=== PATIENT | male | born 1965 | race Caucasian/White ===

== ENCOUNTER 2020-07-14 02:46 | Emergency (ER) | payer OTHER ==
[2020-07-14 03:24] LABS: Protime INR 1.18
[2020-07-14 03:25] LABS: Absolute Lymphocytes (CBC) 4.9 K/uL (0.7-4.9); MPV 6.8 fL (7.6-11.3)
[2020-07-14 03:33] LABS: Basophils % 0.6 % (0-1.3); Hematocrit 42.9 % (39.6-49.0); Lymphocytes % 47.9 % (15.3-44.8); RBC Red Blood Cell Count 4.65 M/uL (4.33-5.43)
[2020-07-14 03:34] LABS: ALT/SGPT 27 U/L (12-78); AST/SGOT 15 U/L (15-37); Albumin 3.6 g/dL (3.4-5.0); Alkaline Phosphatase 57 U/L (45-117); BUN Blood Urea Nitrogen 16 mg/dL (7-18); Bicarbonate 27 mmol/L (21-32); Bilirubin Direct 0.1 mg/dL (0-0.2); Bilirubin Total 0.5 mg/dL (0.2-1.0); Glucose Level 110 mg/dL (74-106); Magnesium 2.2 mg/dL (1.8-2.4); NT PRO-BNP 25 pg/mL (<125); Protein, Total 7.4 g/dL (6.4-8.2); Sodium Level 139 mmol/L (136-145); Troponin (Emerg Dept Use Only) < 0.02 ng/mL (0.0-0.045)
[2020-07-14] MEDS ORDERED: ASPIRIN 81 MG CHEWABLE TABLET ONE (03:46)
[2020-07-14] MEDS ORDERED: MORPHINE 4 MG/ML SYR ONE ×2 (03:47→04:33)
[2020-07-14] MEDS ORDERED: NA CHLORIDE 0.9% 1,000 ML ONE (03:47)
[2020-07-14] MEDS ORDERED: ONDANSETRON 4 MG/2 ML VIAL ONE (03:47)
--- NOTE | 2020-07-14 04:14 | EDPHYS ---
Physician Documentation [facility] Name: Leonard Willis Age: 55 yrs Sex: Male : 1965 Arrival Date: 07/14/2020 Time: 02:50 Bed 14 Private MD: ED Physician Danica Fong HPI: 07/14 03:19 This 55 yrs old Male presents to ER via Ambulatory with complaints of Arm ma2 Pain, -raditates to finger causing numbness. 03:19 The patient or guardian complains of pain, that is acute. Onset: The symptoms/episode ma2 began/occurred suddenly, 1 hour(s) ago. Associated signs and symptoms: Pertinent negatives: fever, nausea, pain, tingling. Severity of symptoms: At their worst the symptoms were mild, in the emergency department the symptoms are unchanged. The patient has not experienced similar symptoms in the past. scapula pain that radiate to left arm . Historical: - Allergies: 03:11 No Known Allergies; - Home Meds: 03:11 None [Active]; - PMHx: 03:11 Barrets Esophagus; Skin Cancer; - Immunization history:: Adult Immunizations up to date, Client reports receiving the 2nd dose of the Covid vaccine. - Social history:: Smoking status: Patient reports the use of cigarette tobacco products, smokes one pack cigarettes per day. Patient/guardian denies using alcohol, street drugs, The patient lives with family. - Family history:: not pertinent. ROS: 03:19 Constitutional: Negative for fever, chills, and weight loss. ma2 03:19 All other systems are negative. Exam: 03:19 Constitutional: This is a well developed, well nourished patient who is awake, alert, ma2 and in no acute distress. Neck: Trachea midline, no thyromegaly or masses palpated, and no cervical lymphadenopathy. Supple, full range of motion without nuchal rigidity, or vertebral point tenderness. No Meningismus. Chest/axilla: Normal chest wall appearance and motion. Nontender with no deformity. No lesions are appreciated. Cardiovascular: Regular rate and rhythm with a normal S1 and S2. No gallops, murmurs, or rubs. Normal PMI, no JVD. No pulse deficits. Respiratory: Lungs have equal breath sounds bilaterally, clear to auscultation and percussion. No rales, rhonchi or wheezes noted. No increased work of breathing, no retractions or nasal flaring. Abdomen/GI: Soft, non-tender, with normal bowel sounds. No distension or tympany. No guarding or rebound. No evidence of tenderness throughout. Skin: Warm, dry with normal turgor. Normal color with no rashes, no lesions, and no evidence of cellulitis. MS/ Extremity: Pulses equal, no cyanosis. Neurovascular intact. Full, normal range of motion. Neuro: Awake and alert, GCS 15, oriented to person, place, time, and situation. Cranial nerves II-XII grossly intact. Motor strength 5/5 in all extremities. Sensory grossly intact. Cerebellar exam normal. Normal gait. Vital Signs: 03:08 BP 128 / 92; Pulse 86; Resp 18; Temp 98.3; Pulse Ox 97% on R/A; Weight 88.45 kg; Height wh 6 ft. 0 in. (182.88 cm); Pain 7/10; 04:00 BP 112 / 94; Pulse 75; Resp 18; Pulse Ox 96% on R/A; wh 05:09 BP 114 / 82; Pulse 62; Resp 18; Pulse Ox 96% on R/A; wh 03:08 Body Mass Index 26.45 (88.45 kg, 182.88 cm) MDM: 03:18 Patient medically screened. ma2 03:19 Differential diagnosis: contusion, abrasion, tendonitis, chest pain, left sided, shimon ma2 score is 2, daily smoker. ekg with twi. Data reviewed: vital signs, nurses notes. 04:12 Counseling: I had a detailed discussion with the patient and/or guardian regarding: the ma2 historical points, exam findings, and any diagnostic results supporting the discharge/admit diagnosis, the presence of at least one elevated blood pressure reading (>120/80) during this emergency department visit, the need for further work-up and treatment in the hospital. Response to treatment: the patient's symptoms have markedly improved after treatment. 04:44 ED course: patient decied he want to leave AMA, I explained that this could be ME and ma2 risk of having worsening outcome and or . patient understands risk of leaving AMA he will see his pcp in the next few days . 07/14 03:02 Order name: Basic Metabolic Panel; Complete Time: 03:53 07/14 03:02 Order name: CBC with Diff; Complete Time: 03:53 07/14 03:02 Order name: LFT's; Complete Time: 03:53 07/14 03:02 Order name: Magnesium; Complete Time: 03:53 07/14 03:02 Order name: NT PRO-BNP; Complete Time: 03:53 07/14 03:02 Order name: PT-INR; Complete Time: 03: 07/14 03:02 Order name: Troponin (emerg Dept Use Only); Complete Time: 03:53 07/14 03:02 Order name: XRAY Chest (1 view) 07/14 03:02 Order name: EKG; Complete Time: 03:02 07/14 03:02 Order name: Cardiac monitoring; Complete Time: 03:13 07/14 03:02 Order name: EKG - Nurse/Tech; Complete Time: 03:13 07/14 03:02 Order name: IV Saline Lock; Complete Time: 03: 07/14 03:02 Order name: Labs collected and sent; Complete Time: 03:14 07/14 03:02 Order name: O2 Per Protocol; Complete Time: 03: 07/14 03:02 Order name: O2 Sat Monitoring; Complete Time: 03:14 Administered Medications: 03:25 Drug: Aspirin Chewable Tablet 324 mg Route: PO; 04:04 Follow up: Response: No adverse reaction 03:27 Drug: NS 0.9% 1000 ml Route: IV; Rate: 1 bolus; Site: right antecubital; 04:47 Follow up: Response: No adverse reaction; IV Status: Completed infusion 03:29 Drug: morphine 4 mg {Note: RASS 0.} Route: IVP; Site: right antecubital; 04:05 Follow up: Response: No adverse reaction; Pain is unchanged, physician notified; RASS: Alert and Calm (0) 03:31 Drug: Zofran (Ondansetron) 4 mg Route: IVP; Site: right antecubital; 04:04 Follow up: Response: No adverse reaction 04:04 Drug: Nitroglycerin 0.4 mg Route: Sublingual; 04:47 Follow up: Response: No adverse reaction 04:19 Drug: morphine 4 mg {Note: RASS 0.} Route: IVP; Site: right antecubital; 04:47 Follow up: Response: No adverse reaction; Pain is decreased; RASS: Alert and Calm (0) 04:58 Drug: Lidoderm 5 % (700 mg/patch) 1 patches Route: Topical; Site: affected area; 05:09 Follow up: Response: No adverse reaction 04:58 Drug: TORadol (ketorolac) 30 mg Route: IVP; Site: right antecubital; 05:08 Follow up: Response: No adverse reaction Disposition: 07/14/20 04:47 Patient has left against medical advice. Impression: Pain in left arm, Chest pain, unspecified. - Patients states they are going to Home. - Condition is Stable. - Discharge Instructions: Nonspecific Chest Pain. - Prescriptions for Diclofenac Sodium 75 mg Oral Tablet Sustained Release - take 1 tablet by ORAL route 2 times per day; 30 tablet. lidocaine 5 % Topical adhesive patch,medicated - apply 2 patch by TRANSDERMAL route once daily; 5 Each. Follow up: Private Physician; When: Today; Reason: Continuance of care. - Problem is new. - Symptoms are unchanged. Signatures: Dispatcher [employer] EDMS Kannan Coats, VULNERABILITY ASSESSMENT ANALYST-C VULNERABILITY ASSESSMENT ANALYST-Cla1 Onelia Lama RN RN Danica Fong MD MD ma2 Corrections: (The following items were deleted from the chart) 04:46 04:13 Hospitalization Ordered by Pineda Paez MD for Observation. Preliminary ma2 diagnosis is Chest pain, unspecified. Bed requested for Telemetry/MedSurg (observation). Status is Observation. Condition is Stable. Problem is new. Symptoms are unchanged. ma2 05:10 04:47 07/14/2020 04:47 Patients has left against medical advice. Impression: Pain in left arm; Chest pain, unspecified. Patient states they are going to Home. Condition is Stable. Follow up: Private Physician; When: Today; Reason: Continuance of care. Problem is new. Symptoms are unchanged. ma2
--- NOTE | 2020-07-14 04:14 | ER ---
Nurse's Notes [facility] Name: Leonard Willis Age: 55 yrs Sex: Male : 1965 Arrival Date: 07/14/2020 Time: 02:50 Bed 14 Private MD: Diagnosis: Pain in left arm;Chest pain, unspecified Presentation: 07/14 03:08 Chief complaint: Patient states: Left shoulder pain that goes to left hand that started wh 2 days ago getting worse. Coronavirus screen: Client denies travel out of the [place] in the last 14 days. Ebola Screen: Patient negative for fever greater than or equal to 101.5 degrees Fahrenheit, and additional compatible Ebola Virus Disease symptoms Patient denies exposure to infectious person. Initial Sepsis Screen: Does the patient meet any 2 criteria? No. Patient's initial sepsis screen is negative. Does the patient have a suspected source of infection? No. Patient's initial sepsis screen is negative. Risk Assessment: Do you want to hurt yourself or someone else? Patient reports no desire to harm self or others. Onset of symptoms was July 14, 2020. 03:08 Method Of Arrival: Ambulatory 03:08 Acuity: CORINNE 3 Historical: - Allergies: 03:11 No Known Allergies; - Home Meds: 03:11 None [Active]; - PMHx: 03:11 Barrets Esophagus; Skin Cancer; - Immunization history:: Adult Immunizations up to date, Client reports receiving the 2nd dose of the Covid vaccine. - Social history:: Smoking status: Patient reports the use of cigarette tobacco products, smokes one pack cigarettes per day. Patient/guardian denies using alcohol, street drugs, The patient lives with family. - Family history:: not pertinent. Screenin:13 Abuse screen: Denies threats or abuse. Denies injuries from another. Nutritional screening: No deficits noted. Tuberculosis screening: No symptoms or risk factors identified. Fall Risk None identified. Assessment: 03:11 General: Appears in no apparent distress. uncomfortable, Behavior is calm, cooperative, wh appropriate for age. Pain: Complains of pain in left shoulder Pain radiates to left hand Pain currently is 7 out of 10 on a pain scale. Quality of pain is described as sharp, throbbing, Pain began 2-3 days ago. Is episodic. Neuro: Level of Consciousness is awake, alert, obeys commands, Oriented to person, place, time, situation, Appropriate for age. Cardiovascular: Heart tones S1 S2 Rhythm is sinus rhythm. Respiratory: Airway is patent Respiratory effort is even, unlabored, Respiratory pattern is regular, symmetrical, Breath sounds are clear bilaterally. GI: Abdomen is flat, non-distended. : No signs and/or symptoms were reported regarding the genitourinary system. EENT: No signs and/or symptoms were reported regarding the EENT system. Derm: Skin is intact, is healthy with good turgor, Skin is pink, warm \T\ dry. normal. Musculoskeletal: Circulation, motion, and sensation intact. 04:15 Reassessment: Patient appears in no apparent distress at this time. No changes from previously documented assessment. Patient and/or family updated on plan of care and expected duration. Pain level reassessed. Patient is alert, oriented x 3, equal unlabored respirations, skin warm/dry/pink. 05:00 Reassessment: Patient appears in no apparent distress at this time. Provider at bedside explaining POC need for admit. Vital Signs: 03:08 BP 128 / 92; Pulse 86; Resp 18; Temp 98.3; Pulse Ox 97% on R/A; Weight 88.45 kg; Height 6 ft. 0 in. (182.88 cm); Pain 7/10; 04:00 BP 112 / 94; Pulse 75; Resp 18; Pulse Ox 96% on R/A; wh 05:09 BP 114 / 82; Pulse 62; Resp 18; Pulse Ox 96% on R/A; 03:08 Body Mass Index 26.45 (88.45 kg, 182.88 cm) ED Course: 02:50 Patient arrived in ED. bp1 02:58 Danica Fong MD is Attending Physician. ma2 03:01 Onelia Lama, DANAE is Primary Nurse. 03:10 Triage completed. 03:13 Arm band placed on right wrist. 03:13 Patient has correct armband on for positive identification. Bed in low position. Call light in reach. Side rails up X 1. oss architect on. Pulse ox on. NIBP on. 03:13 Inserted saline lock: 20 gauge in right antecubital area, using aseptic technique. Blood collected. 03:15 XRAY Chest (1 view) In Process Unspecified. EDMS 04:13 Pineda Paez MD is Hospitalizing Provider. ma2 05:10 No provider procedures requiring assistance completed. IV discontinued, intact, bleeding controlled, No redness/swelling at site. Administered Medications: 03:25 Drug: Aspirin Chewable Tablet 324 mg Route: PO; 04:04 Follow up: Response: No adverse reaction 03:27 Drug: NS 0.9% 1000 ml Route: IV; Rate: 1 bolus; Site: right antecubital; 04:47 Follow up: Response: No adverse reaction; IV Status: Completed infusion 03:29 Drug: morphine 4 mg {Note: RASS 0.} Route: IVP; Site: right antecubital; 04:05 Follow up: Response: No adverse reaction; Pain is unchanged, physician notified; RASS: Alert and Calm (0) 03:31 Drug: Zofran (Ondansetron) 4 mg Route: IVP; Site: right antecubital; 04:04 Follow up: Response: No adverse reaction 04:04 Drug: Nitroglycerin 0.4 mg Route: Sublingual; 04:47 Follow up: Response: No adverse reaction 04:19 Drug: morphine 4 mg {Note: RASS 0.} Route: IVP; Site: right antecubital; 04:47 Follow up: Response: No adverse reaction; Pain is decreased; RASS: Alert and Calm (0) 04:58 Drug: Lidoderm 5 % (700 mg/patch) 1 patches Route: Topical; Site: affected area; 05:09 Follow up: Response: No adverse reaction 04:58 Drug: TORadol (ketorolac) 30 mg Route: IVP; Site: right antecubital; 05:08 Follow up: Response: No adverse reaction Outcome: 04:13 Decision to Hospitalize by Provider. ma2 05:10 AMA AMA form signed 05:10 Condition: stable 05:10 Instructed on follow up and referral plans. medication usage, POC Demonstrated understanding of instructions, follow-up care, medications, POC 05:10 Patient left the ED. Signatures: Dispatcher [employer] EDMS Onelia Lama RN RN Danica Fong MD MD ma2 [place], Radha bp1
[2020-07-14] MEDS ORDERED: NITROGLYCERIN 0.4 MG/TAB SL ONE (04:17)
[2020-07-14] MEDS ORDERED: KETOROLAC 30 MG/ML INJ ONE (05:10)
[2020-07-14] MEDS ORDERED: LIDOCAINE 4% PATCH ONE (05:10)
[2020-07-14 05:39] VITALS: TEMP 98.3
[2020-07-14 05:41] VITALS: O2SAT 96
[2020-07-14 05:43] VITALS: BP 114/82
--- NOTE | 2020-07-14 08:58 | EKG ---
Test Date: 2020-07-14 Test Time: 02:58:30 Testing Director: MEASUREMENT RESULTS: Intervals: Rate: 87 MD: 148 QRSD: 78 QT: 374 QTc: 450 Aiken: P: -24 MD: 148 QRS: -21 T: -21 INTERPRETIVE STATEMENTS: Normal sinus rhythm Minimal voltage criteria for LVH, may be normal variant Nonspecific T wave abnormality Abnormal ECG No previous ECG available for comparison Electronically Signed On 07-14-20 08:58:34 CDT by Rick Clemente
--- NOTE | 2020-07-14 09:04 | RAD REPORT ---
EXAM DESCRIPTION: RAD - Chest Single View - 07/14/2020 3:15 am CLINICAL HISTORY: Arm Pain Chest pain. COMPARISON: No comparisons FINDINGS: Portable technique limits examination quality. The lungs are grossly clear. The heart is normal in size. No displaced fractures. IMPRESSION: No acute intrathoracic process suspected.
== END 2020-07-14 05:10 | disposition left against medical advice (07) ==
LOC: ER 02:46
DX: R07.9 Chest pain, unspecified (principal); F17.210 Nicotine dependence, cigarettes, uncomplicated; Z85.828 Personal history of other malignant neoplasm of skin
CPT/HCPCS: 96361; 93005; 85025; 80048; 36415; 83735; 85610; 80076; 84484; 83880; 71045; 96375; 96374; 99284; J7030; J2405

== ENCOUNTER 2020-07-15 00:40 | Emergency (ER) | payer OTHER ==
[2020-07-15] MEDS ORDERED: ONDANSETRON 4 MG/2 ML VIAL ONE ×2 (02:56→03:16)
[2020-07-15] MEDS ORDERED: MORPHINE 2 MG/ML SYR ONE (02:56)
[2020-07-15 02:58] LABS: Absolute Lymphocytes (CBC) 3.9 K/uL (0.7-4.9); Basophils % 0.7 % (0-1.3); Hematocrit 39.4 % (39.6-49.0); Lymphocytes % 38.3 % (15.3-44.8); RBC Red Blood Cell Count 4.26 M/uL (4.33-5.43)
[2020-07-15 03:09] LABS: Protime INR 1.13
[2020-07-15] MEDS ORDERED: MORPHINE 4 MG/ML SYR ONE (03:16)
[2020-07-15 03:23] LABS: ALT/SGPT 24 U/L (12-78); AST/SGOT 13 U/L (15-37); Albumin 3.3 g/dL (3.4-5.0); Alkaline Phosphatase 51 U/L (45-117); BUN Blood Urea Nitrogen 18 mg/dL (7-18); Bicarbonate 25 mmol/L (21-32); Bilirubin Direct < 0.1 mg/dL (0-0.2); Bilirubin Total 0.3 mg/dL (0.2-1.0); Glucose Level 99 mg/dL (74-106); Magnesium 2.2 mg/dL (1.8-2.4); NT PRO-BNP 156 pg/mL (<125); Protein, Total 6.5 g/dL (6.4-8.2); Sodium Level 141 mmol/L (136-145); Troponin (Emerg Dept Use Only) < 0.02 ng/mL (0.0-0.045)
[2020-07-15] MEDS ORDERED: HYDROMORPHONE HCL 1 MG/ML INJ ONE (05:07)
--- NOTE | 2020-07-15 05:33 | EDPHYS ---
Physician Documentation [facility] Name: Leonard Willis Age: 55 yrs Sex: Male : 1965 Arrival Date: 07/15/2020 Time: 00:43 Bed 20 Private MD: ED Physician Dixon Durham HPI: 07/15 05:25 This 55 yrs old Male presents to ER via Ambulatory with complaints of mh7 Shoulder Pain, Arm Pain, Hand Pain. 05:25 The patient or guardian complains of pain, that is acute. left shoulder and left mh7 trapezius and left neck. Context: The problem was sustained at home, resulted from an unknown reason, The patient reports no decreased range of motion. The patient reports no obvious deformity. Onset: The symptoms/episode began/occurred 3 day(s) ago. Modifying factors: the symptoms are alleviated by nothing. The symptoms are aggravated by movement. Associated signs and symptoms: Pertinent negatives: abdominal pain, chest pain, diaphoresis, dyspnea, shortness of breath, tingling. Severity of symptoms: At their worst the symptoms were moderate, last night, in the emergency department the symptoms are unchanged. Treatment prior to arrival includes: prescription medications, diclofenac. 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 - Social history:: Smoking status: unknown. ROS: 05:25 Constitutional: Negative for fever, chills, and weight loss, Eyes: Negative for injury, mh7 pain, redness, and discharge, ENT: Negative for injury, pain, and discharge, Cardiovascular: Negative for chest pain, palpitations, and edema, Respiratory: Negative for shortness of breath, cough, wheezing, and pleuritic chest pain, Abdomen/GI: Negative for abdominal pain, nausea, vomiting, diarrhea, and constipation, Back: Negative for injury and pain, : Negative for injury, bleeding, discharge, and swelling, Skin: Negative for injury, rash, and discoloration, Neuro: Negative for headache, weakness, numbness, tingling, and seizure, Psych: Negative for depression, anxiety, suicide ideation, homicidal ideation, and hallucinations, Allergy/Immunology: Negative for hives, rash, and allergies, Endocrine: Negative for neck swelling, polydipsia, polyuria, polyphagia, and marked weight changes, Hematologic/Lymphatic: Negative for swollen nodes, abnormal bleeding, and unusual bruising. Exam: 05:25 Constitutional: This is a well developed, well nourished patient who is awake, alert, mh7 and in no acute distress. Head/Face: Normocephalic, atraumatic. Eyes: Pupils equal round and reactive to light, extra-ocular motions intact. Lids and lashes normal. Conjunctiva and sclera are non-icteric and not injected. Cornea within normal limits. Periorbital areas with no swelling, redness, or edema. 05:25 Chest/axilla: Normal chest wall appearance and motion. Nontender with no deformity. No lesions are appreciated. Cardiovascular: Regular rate and rhythm with a normal S1 and S2. No gallops, murmurs, or rubs. Normal PMI, no JVD. No pulse deficits. Respiratory: Lungs have equal breath sounds bilaterally, clear to auscultation and percussion. No rales, rhonchi or wheezes noted. No increased work of breathing, no retractions or nasal flaring. Abdomen/GI: Soft, non-tender, with normal bowel sounds. No distension or tympany. No guarding or rebound. No evidence of tenderness throughout. Back: No spinal tenderness. No costovertebral tenderness. Full range of motion. Skin: Warm, dry with normal turgor. Normal color with no rashes, no lesions, and no evidence of cellulitis. 05:25 Neuro: Awake and alert, GCS 15, oriented to person, place, time, and situation. Cranial nerves II-XII grossly intact. Motor strength 5/5 in all extremities. Sensory grossly intact. Cerebellar exam normal. Normal gait. Psych: Awake, alert, with orientation to person, place and time. Behavior, mood, and affect are within normal limits. 05:25 Neck: External neck: tenderness, that is moderate, of the left trapezius, C-spine: appears grossly normal, Thyroid: appears normal, Trachea: is midline with no obvious abnormalities, ROM/movement: is normal, Lymph nodes: no appreciated lymphadenopathy. 05:25 Musculoskeletal/extremity: Extremities: tenderness, ROM: intact in all extremities, Circulation is intact in all extremities. Sensation intact. Compartment Syndrome exam of affected extremity: is normal. no numbness, no tingling, no sensation deficit, no palor, no weak pulses, Joints: All joints appear normal with full range of motion. Weight bearing: able to fully bear weight, without difficulty, Tendon exam: specific tendon testing normal through active and passive range of motion Vital Signs: 01:02 BP 140 / 105; Pulse 94; Resp 18 S; Temp 98.8(O); Pulse Ox 99% on R/A; Weight 88.45 kg bb (R); Height 6 ft. 0 in. (182.88 cm) (R); Pain 9/10; 01:48 BP 122 / 81; Pulse 80; Resp 13 S; Pulse Ox 94% on R/A; ad5 02:30 BP 136 / 87; Pulse 74; Resp 16 S; Pulse Ox 96% on R/A; ad5 03:10 BP 141 / 94; Pulse 74; Resp 16 S; Pulse Ox 96% on R/A; ad5 04:30 BP 138 / 86; Pulse 61; Resp 16 S; Pulse Ox 96% on R/A; ad5 05:19 BP 136 / 83; Pulse 71; Resp 15 S; Pulse Ox 96% on R/A; ad5 01:02 Body Mass Index 26.45 (88.45 kg, 182.88 cm) bb MDM: 05:25 Differential diagnosis: DJD, tendonitis, radiculopathy. Data reviewed: vital signs, [facility] nurses notes, old medical records, lab test result(s), cardiac enzymes, CBC, electrolytes, EKG, radiologic studies, CT scan, plain films. Data interpreted: Pulse oximetry: on room air is 96 %. Interpretation: normal. Counseling: I had a detailed discussion with the patient and/or guardian regarding: the historical points, exam findings, and any diagnostic results supporting the discharge/admit diagnosis, the presence of at least one elevated blood pressure reading (>120/80) during this emergency department visit, lab results, radiology results, the need for outpatient follow up, a neurosurgeon, to return to the emergency department if symptoms worsen or persist or if there are any questions or concerns that arise at home. Response to treatment: the patient's symptoms have markedly improved after treatment. 05:32 Patient medically screened. [facility] 07/15 02:34 Order name: Basic Metabolic Panel [facility] 07/15 02:34 Order name: CBC with Diff [facility] 07/15 02:34 Order name: LFT's; Complete Time: 04:27 [facility] 07/15 02:34 Order name: Magnesium; Complete Time: 04:27 [facility] 07/15 02:34 Order name: NT PRO-BNP; Complete Time: 04:27 [facility] 07/15 02:34 Order name: PT-INR; Complete Time: 04:27 [facility] 07/15 02:34 Order name: Troponin (emerg Dept Use Only); Complete Time: 04:27 [facility] 07/15 02:34 Order name: XRAY Chest (1 view) [facility] 07/15 02:34 Order name: CT C Spine [facility] 07/15 02:35 Order name: Basic Metabolic Panel; Complete Time: 04:27 [facility] 07/15 02:35 Order name: CBC with Automated Diff; Complete Time: 04:27 [facility] 07/15 02:34 Order name: EKG; Complete Time: 02:35 [facility] 07/15 02:34 Order name: Cardiac monitoring; Complete Time: 03:07 [facility] 07/15 02:34 Order name: EKG - Nurse/Tech; Complete Time: 03:07 [facility] 07/15 02:34 Order name: IV Saline Lock; Complete Time: 03:07 [facility] 07/15 02:34 Order name: Labs collected and sent; Complete Time: 03:07 [facility] 07/15 02:34 Order name: O2 Sat Monitoring; Complete Time: 03:07 [facility] Administered Medications: 02:55 Drug: morphine 2 mg {Note: RASS 0.} Route: IVP; Site: right antecubital; ad5 05:20 Follow up: Response: No adverse reaction; RASS: Alert and Calm (0) ad5 02:55 Drug: Zofran (Ondansetron) 4 mg Route: IVP; Site: right antecubital; ad5 05:20 Follow up: Response: No adverse reaction ad5 04:53 Drug: Dilaudid (HYDROmorphone) 1 mg {Note: RASS 0.} Route: IVP; Site: right antecubital;ad5 05:20 Follow up: Response: No adverse reaction; Pain is decreased; RASS: Alert and Calm (0) ad5 Disposition: 07/15/20 05:32 Discharged to Home. Impression: Cervical Radiculopathy. - Condition is Stable. - Prescriptions for Tramadol 50 mg Oral Tablet - take 1 tablet by ORAL route every 8 hours as needed; 12 tablet. Medrol (Beto) 4 mg Oral Tablets, Dose Pack - take 1 tablet by ORAL route as directed - follow package instructions; 1 packet. - Medication Reconciliation Form, Thank You Letter, Antibiotic Education, Prescription Opioid Use form. - Follow up: Private Physician; When: 1 - 2 days; Reason: Worsening of condition, Recheck today's complaints, Continuance of care, Re-evaluation by your physician. Follow up: Danica Philip MD; When: 1 - 2 days; Reason: Worsening of condition, Recheck today's complaints. Follow up: Fritz Avila MD; When: 1 - 2 days; Reason: Worsening of condition, Recheck today's complaints. - Problem is new. - Symptoms have improved. Signatures: Dispatcher [employer] EDLuciana Aguirre RN RN Dioxn Ace MD MD 7 David Hawley ad5 Corrections: (The following items were deleted from the chart) 05:45 05:32 07/15/2020 05:32 Discharged to Home. Impression: Cervical Radiculopathy. ad5 Condition is Stable. Forms are Medication Reconciliation Form, Thank You Letter, Antibiotic Education, Prescription Opioid Use. Follow up: Private Physician; When: 1 - 2 days; Reason: Worsening of condition, Recheck today's complaints, Continuance of care, Re-evaluation by your physician. Follow up: Danica Philip; When: 1 - 2 days; Reason: Worsening of condition, Recheck today's complaints. Follow up: Fritz Avila; When: 1 - 2 days; Reason: Worsening of condition, Recheck today's complaints. Problem is new. Symptoms have improved. mh7
--- NOTE | 2020-07-15 05:33 | ER ---
Nurse's Notes [facility] Name: Leonard Willis Age: 55 yrs Sex: Male : 1965 Arrival Date: 07/15/2020 Time: 00:43 Bed 20 Private MD: Diagnosis: Cervical Radiculopathy Presentation: 07/15 01:02 Chief complaint: Patient states: he was here last night for the same thing but now the bb pain is worse to his left arm and his whole arm is numb the pain is unbearable and he can't sleep. Coronavirus screen: At this time, the client does not indicate any symptoms associated with coronavirus-19. Ebola Screen: No symptoms or risks identified at this time. Initial Sepsis Screen: Does the patient meet any 2 criteria? No. Patient's initial sepsis screen is negative. Does the patient have a suspected source of infection? No. Patient's initial sepsis screen is negative. Risk Assessment: Do you want to hurt yourself or someone else? Patient reports no desire to harm self or others. Onset of symptoms was July 11, 2020. 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 - Social history:: Smoking status: unknown. Screenin:26 Abuse screen: Denies threats or abuse. Denies injuries from another. Nutritional ad5 screening: No deficits noted. Tuberculosis screening: No symptoms or risk factors identified. Fall Risk None identified. Assessment: 01:23 General: Appears uncomfortable, Behavior is calm, cooperative, appropriate for age. ad5 Pain: Complains of pain in left arm Pain currently is 8 out of 10 on a pain scale. Pain began suddenly, 2-3 days ago. Alleviated by medications, Aggravated by increased activity. Neuro: Level of Consciousness is awake, alert, obeys commands, Oriented to person, place, time, situation, Appropriate for age Gait is steady, Speech is normal, Facial symmetry appears normal, Pupils are PERRLA, Tingling in left arm Numbness in left arm. Cardiovascular: No deficits noted. Heart tones present Capillary refill < 3 seconds Patient's skin is warm and dry. Pulses are all present. Rhythm is regular. Respiratory: No deficits noted. Airway is patent Respiratory effort is even, unlabored, Respiratory pattern is regular, symmetrical. GI: No deficits noted. Abdomen is flat, Bowel sounds present X 4 quads. Abd is soft and non tender. : No deficits noted. EENT: No deficits noted. Derm: No deficits noted. Musculoskeletal: Circulation, motion, and sensation intact. Capillary refill < 3 seconds, Range of motion: limited in left shoulder Tenderness present in L shoulder/neck Reports weakness in left arm numbness in left arm pain in left arm. 02:30 Reassessment: Patient appears in no apparent distress at this time. No changes from ad5 previously documented assessment. Patient and/or family updated on plan of care and expected duration. Pain level reassessed. Patient is alert, oriented x 3, equal unlabored respirations, skin warm/dry/pink. Pt reports continued s/s. S.O. remains at bedside. Pt VSS. Will continue to monitor. 03:28 Reassessment: Patient appears in no apparent distress at this time. No changes from ad5 previously documented assessment. Pt reports no change in pain at this time after analgesia administration, MD aware, awaiting further orders. Pt resting in stretcher with bed low and locked, bedrails x 1, call light within reach. Resp even/unlabored. VSS. Will continue to monitor. Patient states symptoms have not improved. 04:30 Reassessment: Patient appears in no apparent distress at this time. No changes from ad5 previously documented assessment. Patient and/or family updated on plan of care and expected duration. Pain level reassessed. Patient states symptoms have not improved. 05:19 Reassessment: Patient appears in no apparent distress at this time. Patient and/or ad5 family updated on plan of care and expected duration. Pain level reassessed. Patient is alert, oriented x 3, equal unlabored respirations, skin warm/dry/pink. Patient states symptoms have improved. Vital Signs: 01:02 BP 140 / 105; Pulse 94; Resp 18 S; Temp 98.8(O); Pulse Ox 99% on R/A; Weight 88.45 kg bb (R); Height 6 ft. 0 in. (182.88 cm) (R); Pain 9/10; 01:48 BP 122 / 81; Pulse 80; Resp 13 S; Pulse Ox 94% on R/A; ad5 02:30 BP 136 / 87; Pulse 74; Resp 16 S; Pulse Ox 96% on R/A; ad5 03:10 BP 141 / 94; Pulse 74; Resp 16 S; Pulse Ox 96% on R/A; ad5 04:30 BP 138 / 86; Pulse 61; Resp 16 S; Pulse Ox 96% on R/A; ad5 05:19 BP 136 / 83; Pulse 71; Resp 15 S; Pulse Ox 96% on R/A; ad5 01:02 Body Mass Index 26.45 (88.45 kg, 182.88 cm) bb ED Course: 00:43 Patient arrived in ED. es 01:05 Triage completed. bb 01:06 Arm band placed on Patient placed in an exam room, on a stretcher, on pulse oximetry. bb Family accompanied patient. 01:08 David Hawley is Primary Nurse. ad5 01:27 Patient has correct armband on for positive identification. Placed in gown. Bed in low ad5 position. Call light in reach. Side rails up X 1. Adult w/ patient. satellite project site monitor on. Pulse ox on. NIBP on. Door closed. Noise minimized. Warm blanket given. 01:43 Dixon Durham MD is Attending Physician. mh7 02:50 Initial lab(s) drawn, by sc, sent to lab. Inserted saline lock: 20 gauge in right ad5 antecubital area, using aseptic technique. 02:53 XRAY Chest (1 view) In Process Unspecified. EDMS 03:04 CT C Spine In Process Unspecified. EDMS 03:08 No provider procedures requiring assistance completed. ad5 05:31 Danica Philip MD is Referral Physician. mh7 05:32 Fritz Avila MD is Referral Physician. mh7 05:45 IV discontinued, intact, bleeding controlled, No redness/swelling at site. Pressure ad5 dressing applied. Administered Medications: 02:55 Drug: morphine 2 mg {Note: RASS 0.} Route: IVP; Site: right antecubital; ad5 05:20 Follow up: Response: No adverse reaction; RASS: Alert and Calm (0) ad5 02:55 Drug: Zofran (Ondansetron) 4 mg Route: IVP; Site: right antecubital; ad5 05:20 Follow up: Response: No adverse reaction ad5 04:53 Drug: Dilaudid (HYDROmorphone) 1 mg {Note: RASS 0.} Route: IVP; Site: right antecubital;ad5 05:20 Follow up: Response: No adverse reaction; Pain is decreased; RASS: Alert and Calm (0) ad5 Outcome: 05:32 Discharge ordered by MD. gastelum 05:45 Discharged to home ambulatory, with significant other. ad5 05:45 Condition: stable 05:45 Discharge instructions given to patient, significant other, Instructed on discharge instructions, follow up and referral plans. medication usage, Demonstrated understanding of instructions, follow-up care, medications. 05:45 Patient left the ED. ad5 Signatures: Dispatcher [employer] Shelia Colmenares Brenda, RN RN Dixon Ace MD MD mh7 Davidson, Andrea ad5 Corrections: (The following items were deleted from the chart) 01:48 01:48 BP 122 / 81; Pulse 80bpm; Resp 18bpm; Spontaneous; Pulse Ox 94% RA; ad5 ad5
[2020-07-15 05:50] VITALS: TEMP 98.8
[2020-07-15 05:53] VITALS: O2SAT 96
[2020-07-15 05:58] VITALS: BP 136/83
--- NOTE | 2020-07-15 07:51 | EKG ---
Test Date: 2020-07-15 Test Time: 02:47:21 Pharmacy Order Entry Technician: SHARMAINE MEASUREMENT RESULTS: Intervals: Rate: 70 NM: 168 QRSD: 78 QT: 408 QTc: 440 [place]: P: 70 NM: 168 QRS: 76 T: 61 INTERPRETIVE STATEMENTS: Normal sinus rhythm Normal ECG Compared to ECG 07/14/2020 02:58:30 Left ventricular hypertrophy no longer present T-wave abnormality no longer present Electronically Signed On 07-15-20 07:51:25 CDT by Rick Clemente
--- NOTE | 2020-07-15 08:24 | RAD REPORT ---
EXAM DESCRIPTION: RAD - Chest Single View - 07/15/2020 2:53 am CLINICAL HISTORY: CONGESTION Chest pain. COMPARISON: Chest Single View dated 07/14/2020 FINDINGS: Portable technique limits examination quality. The lungs are grossly clear. The heart is normal in size. No displaced fractures. IMPRESSION: No acute intrathoracic process suspected.
--- NOTE | 2020-07-15 18:49 | RAD REPORT ---
EXAM DESCRIPTION: CT Cervical Spine COMPARISON: None. CLINICAL HISTORY: [facility] MAIN RADICULOPATHY TECHNIQUE: Axial CT images were obtained through the entire cervical spine without contrast. Sagit marisel and coronal reconstructions are provided. Automated exposure control was utilized on this examina tion as a dose lowering technique. FINDINGS: Vertebrae: Vertebral statures and alignment are normal. No acute fracture, dislocation o r destructive osseous process is present. Spinal canal, foramina, and facet joints: Up to mild spinal canal stenosis at C6-C7 due to disc osteophyte complex. Up to moderate neural lavonne inal stenosis at left C4 due to uncovertebral hypertrophy and moderate neuroforaminal stenosis at rig ht C5 due to disc osteophyte complex. Paraspinous soft-tissues: Normal. Thyroid: Normal. Other Findings: Paraseptal emphysema is present. IMPRESSION: 1. No acute fracture or subluxation. 2. Cervical spondylosis. 3. Emphysema. Electronically signed by: Chuckie Olguin MD 07/15/2020 3:27 AM CDT Due to temporary technical issues with the PACS/Fluency reporting system, reports are being signed by the in house radiologists without review as a courtesy to insure prompt reporting. The interpreting radiologist is fully responsible for the content of the report.
== END 2020-07-15 05:45 | disposition home or self-care (01) ==
LOC: ER 00:40
DX: M54.12 Radiculopathy, cervical region (principal)
CPT/HCPCS: 93005; 85025; 80048; 36415; 83735; 85610; 80076; 84484; 83880; 72125; 71045; 96375; 96374; 99284; J2270; J1170; J2405

== ENCOUNTER 2022-12-24 08:38 | Day surgery (SDC) | payer OTHER ==
--- NOTE | 2022-12-21 12:24 | RAD REPORT ---
EXAM DESCRIPTION: RAD - Chest Pa And Lat (2 Views) - 12/21/2022 12:17 pm CLINICAL HISTORY: PREOP COMPARISON: Chest Single View dated 07/15/2020; Chest Single View dated 07/14/2020 FINDINGS: Lines: None. Lungs: No evidence of edema or pneumonia. Pleural: No significant pleural effusions or pneumothorax. Cardiac: The heart size is within normal limits. Mediastinum: Within normal limits. Bones: No acute fractures. Other: None IMPRESSION: No acute cardiopulmonary disease.
[2022-12-21 12:31] LABS: Absolute Lymphocytes (CBC) 3.9 K/uL (0.7-4.9); Hematocrit 46.4 % (39.6-49.0); Lymphocytes % 33.2 % (15.3-44.8); MCV 94.2 fL (80-100); MPV 6.6 fL (7.6-11.3); Platelets 338 thou/uL (152-406); RBC Red Blood Cell Count 4.93 M/uL (4.33-5.43)
[2022-12-21 12:43] LABS: Potassium 3.8 mEq/L (3.5-5.1)
[2022-12-24] MEDS ORDERED: KETAMINE HCL IN 0.9 % NACL 50 MG/5 ML SYRINGE IV ONE (09:14)
[2022-12-24] MEDS ORDERED: MIDAZOLAM HCL 2 MG/2 ML INJ ONE (09:14)
[2022-12-24] MEDS ORDERED: propofoL 200 MG/20 ML VIAL IV ONE (09:14)
[2022-12-24] MEDS ORDERED: KETOROLAC 30 MG/ML INJ ONE (09:15)
[2022-12-24] MEDS ORDERED: FENTANYL CITR 100 MCG/2 ML ONE (09:15)
[2022-12-24] MEDS ORDERED: dexAMETHasone 10 MG/ML VIAL ONE (09:15)
[2022-12-24] MEDS ORDERED: LIDOCAINE 2% MPF 5 ML VIAL ONE (09:15)
[2022-12-24] MEDS ORDERED: ONDANSETRON 4 MG/2 ML VIAL ONE (09:15)
[2022-12-24] MEDS: BUPIVACAINE 0.5% PF 10 ML VIAL ONE ×2 (09:19→10:35)
[2022-12-24] MEDS: Ringers Lactate 1,000 ML IV ONE ×2 (09:20→10:09)
[2022-12-24] MEDS ORDERED: CIPROFLOXACIN 400mg IV 400 MG/200 ML BAG IV ONE (09:44)
--- NOTE | 2022-12-24 10:46 | P.BOP ---
Preoperative diagnosis: Prolapsed thrombosed tender hemorrhoid Postoperative diagnosis: same Primary procedure: EUA, Anoscopy, Rigid proctoscopy, External hemorroidectomy Estimated blood loss: <10cc Specimen: R posterolateral, Left posterolateral hemorrhoids Findings: R posterolateral, Left posterolateral hemorrhoids Anesthesia: General Complications: None Transferred to: Recovery Room Condition: Good
[2022-12-24] MEDS ORDERED: HYDROCODONE/APAP 5/325 MG TAB ONE (12:11)
[2022-12-24 12:33] VITALS: BP 138/85; TEMP 97.8; O2SAT 99
--- NOTE | 2022-12-24 13:33 | OP ---
Date of Procedure: 12/24/2022 Surgeon: Leo Calles MD Preoperative Diagnosis: Prolapsed thrombosed tender hemorrhoids. Postoperative Diagnosis: Prolapsed thrombosed tender hemorrhoids. Procedure: Exam under anesthesia, anoscopy, rigid proctoscopy, external hemorrhoidectomy, right and left posterolateral. Estimated Blood Loss: Less than 10 cc. Complications: None. Specimen: Hemorrhoids x2. Anesthesia: General plus local. Indication: This is a case of a 57-year-old patient who comes due to perianal tenderness with lump. Despite treatment and sitz baths and creams, it cannot improve, so he decided to come to us for EUA, anoscopy, proctoscopy, possible hemorrhoidectomy with benefits, alternatives, and risks including, b ut not limited to, infection, bleeding, damage to adjacent structures, anesthesia complication, recur rence, [place], and even . He also understands this may not relieve any symptoms. He might need mor e than one surgical intervention. He also understands the risk of anal stricture, anal incontinence. He also understands he has all the hemorrhoids in that area that he has to comply with the recommen dations we gave him to diminish the chance of complication with hemorrhoids like this one. He unders tood, signed a consent. Description Of Procedure: Patient brought to the operating room, placed in supine position. Anesthe mariah was done without complication. The patient was placed in lithotomy position with proper protecti on. A time-out was called. Rectal examination was then followed by a rigid proctoscopy all the way to about 15 cm. We noticed internal and external hemorrhoids. We noticed 2 bundles that were thromb osed right and left posterolateral. Those were the ones we identified before. They are still hard. So, what I did I just approached those two areas, two different bundles left and right posterolatera l. First, we opened the right posterolateral area and then opened the anoderm, identified the hemorr hoidal plexus from the sphincter and transected that hemorrhoidal plexus with the help of H armonic Scalpel. The left posterior lateral was done using same technique always protecting the sphi ncter. The anoderm was approximated with the help of a 3-0 chromic and Surgicel was placed over that area. No bowel leak. No bleeding. At that moment, I proceeded to remove the anoscope from that ar ea and then obtained instrument and sponge count correct. The patient tolerated the procedure well. Local anesthesia was applied over the area. Patient was sent to Recovery in stable condition. YURIY/MORAIMA Voice ID: [id number] Report ID: [id number]
--- NOTE | 2022-12-24 13:35 | DS ---
Diagnosis: Prolapsed thrombosed tender hemorrhoids. Condition: Stable. Disposition: Home. Activity: As tolerated. No heavy lifting. Plan: Follow up in my office in 1 week. Call for appointment at [phone]. Sitz baths 4 times a day and after every bowel movement. FATUMA Voice ID: [id number] Report ID: [id number]
== END 2022-12-24 12:16 | disposition home or self-care (01) ==
LOC: OR 08:38
PROVIDERS: ATTEND Surgery
PROC: 06BY0ZC Excision of Hemorrhoidal Plexus, Open Approach (ICD-10-PCS; 2022-12-24)
PROC: 0DJD8ZZ Inspection of Lower Intestinal Tract, Via Natural or Artificial Opening Endoscopic (ICD-10-PCS; principal; 2022-12-24 10:30)
DX: K64.8 Other hemorrhoids (principal); K62.89 Other specified diseases of anus and rectum
CPT/HCPCS: 45300; 46250; 93005; 85025; 80048; 36415; 88304; 71046; J2704; J2001; J2250; J3010; J1100; J2405; J0744; J7120

== ENCOUNTER → 2023-03-04 | Emergency (ER) | payer OTHER ==
[~2023-03-04] MED LIST: HYDROCODONE/APAP 10/325 TAB ONE; LIDOCAINE 1% MPF 5 ML VIAL ONE
--- NOTE | 2023-03-04 13:03 | ER ---
Nurse's Notes [facility] Name: Leonard Willis Age: 57 yrs Sex: Male : 1965 Arrival Date: 03/04/2023 Time: 11:48 Bed 20 Private MD: Diagnosis: Cutaneous abscess to left axilla Presentation: 03/04 11:54 Chief complaint: Patient states: "I have a cyst on my left arm pit and it hurts". Pt aa5 states he was unable to see PCP today and was told to come to ER. 11:54 Coronavirus screen: At this time, the client does not indicate any symptoms associated aa5 with coronavirus-19. Ebola Screen: Patient denies travel to an Ebola-affected area in the 21 days before illness onset. Initial Sepsis Screen: Does the patient meet any 2 criteria? No. Patient's initial sepsis screen is negative. Does the patient have a suspected source of infection? No. Patient's initial sepsis screen is negative. Risk Assessment: Do you want to hurt yourself or someone else? Patient reports no desire to harm self or others. Onset of symptoms was February 2023. 11:54 Method Of Arrival: Ambulatory aa5 11:54 Acuity: CORINNE 3 aa5 Historical: - Allergies: 12:04 PENICILLINS; aa5 - Home Meds: 12:04 unknown medication for high cholesterol [Active]; aa5 - PMHx: 12:04 barrets esophagus; skin cancer; Hypercholesterolemia; aa5 - Immunization history:: Adult Immunizations unknown. - Social history:: Smoking status: Patient reports the use of cigarette tobacco products, smokes one pack cigarettes per day. - Family history:: not pertinent. Vital Signs: 11:54 BP 132 / 89; Pulse 83; Resp 16 S; Temp 97.5(O); Pulse Ox 99% on R/A; Weight 89.81 kg aa5 (R); Height 5 ft. 11 in. (R); 11:54 Body Mass Index 27.62 (89.81 kg, 180.34 cm) aa5 ED Course: 11:51 Patient arrived in ED. mg5 11:52 Nirmal Jacobs MD is Attending Physician. rt 11:54 Arm band placed on. aa5 12:06 Triage completed. aa5 12:23 Serenity Forrest, RN is Primary Nurse. ap3 13:42 No provider procedures requiring assistance completed. Patient did not have IV access cm10 during this emergency room visit. Administered Medications: 12:23 Drug: [place] PO 10 mg-325 mg 1 tabs PO once Route: PO; ap3 13:37 Drug: Lidocaine Infiltration (1 %) 5 ml 5 ml Infiltration once; to bedside Volume: 5 mb9 ml; Route: Infiltration; Outcome: 13:03 Discharge ordered by . rt 13:42 Discharged to home ambulatory, 10 13:42 Condition: stable 13:42 Discharge instructions given to patient, Instructed on discharge instructions, follow up and referral plans. Demonstrated understanding of instructions, follow-up care, medications, Prescriptions given X 2, 13:42 Patient left the ED. cm10 Signatures: Lisa Keita, RN RN aa5 Serenity Forrest, RN RN ap3 Duyen Cody, RN RN [id number] Nirmal Jacobs MD MD rt Martinez, Clarissa, RN RN cm10 Krysten Askew mg5
--- NOTE | 2023-03-04 13:03 | EDPHYS ---
Physician Documentation [facility] Name: Leonard Willis Age: 57 yrs Sex: Male : 1965 Arrival Date: 03/04/2023 Time: 11:48 Bed 20 Private MD: ED Physician Nirmal Jacobs HPI: 03/04 13:52 This 57 yrs old Male presents to ER via Ambulatory with complaints of Cyst. rt 13:52 Able to getPatient presents to the ED with reported cyst and swelling with pain to the rt left axilla that has been present for 1 week, he tried to express liquid, was unable to do so. States that he went to an urgent care, states that they could not handle it, tried to come with his primary care today, and appointment. He denies fever, chills. Denies other acute complaints, symptoms are mild in severity, no other aggravating elevating factors.. Historical: - Allergies: 12:04 PENICILLINS; aa5 - Home Meds: 12:04 unknown medication for high cholesterol [Active]; aa5 - PMHx: 12:04 barrets esophagus; skin cancer; Hypercholesterolemia; aa5 - Immunization history:: Adult Immunizations unknown. - Social history:: Smoking status: Patient reports the use of cigarette tobacco products, smokes one pack cigarettes per day. - Family history:: not pertinent. ROS: 13:52 Constitutional: Negative for fever, chills, and weight loss, Cardiovascular: Negative rt for chest pain, palpitations, and edema, Respiratory: Negative for shortness of breath, cough, wheezing, and pleuritic chest pain, Abdomen/GI: Negative for abdominal pain, nausea, vomiting, diarrhea, and constipation, Neuro: Negative for headache, weakness, numbness, tingling, and seizure, Psych: Negative for depression, anxiety, suicide ideation, homicidal ideation, and hallucinations, 13:52 Skin: Positive for Painful swelling, Exam: 13:52 Constitutional: This is a well developed, well nourished patient who is awake, alert, rt and in no acute distress. Head/Face: Normocephalic, atraumatic. Chest/axilla: Normal chest wall appearance and motion. Nontender with no deformity. No lesions are appreciated. Cardiovascular: Regular rate and rhythm with a normal S1 and S2. No gallops, murmurs, or rubs. Normal PMI, no JVD. No pulse deficits. Respiratory: Lungs have equal breath sounds bilaterally, clear to auscultation and percussion. No rales, rhonchi or wheezes noted. No increased work of breathing, no retractions or nasal flaring. Abdomen/GI: Soft, non-tender, with normal bowel sounds. No distension or tympany. No guarding or rebound. No evidence of tenderness throughout. 13:52 Musculoskeletal/extremity: To the left axilla there is a 1.5 cm area of swelling with erythema at the skin, freely mobile. Vital Signs: 11:54 BP 132 / 89; Pulse 83; Resp 16 S; Temp 97.5(O); Pulse Ox 99% on R/A; Weight 89.81 kg aa5 (R); Height 5 ft. 11 in. (R); 11:54 Body Mass Index 27.62 (89.81 kg, 180.34 cm) aa5 Procedures: 13:52 I \T\ D: Incision and drainage was performed for an abscess of the left axilla. Prepped rt with alcohol, Anesthetized with 3 ml's 1% Lidocaine. Incised with #11 blade. Drained small amount purulent fluid. Packed with Dressing: sterile 4x4 gauze, the patient tolerated the procedure well, Initially did needle aspiration to confirm that there was in fact fluid in place, after purulent fluid was removed, incision was opened, was probed for loculations. MDM: 12:04 Patient medically screened. rt 13:52 Differential Diagnosis Abscess, lymphadenopathy. Data reviewed: vital signs, nurses rt notes. Counseling: I had a detailed discussion with the patient and/or guardian regarding the historical points, exam findings, and any diagnostic results supporting the discharge/admit diagnosis, the need for outpatient follow up. 19:43 I considered the following discharge prescriptions or medication management in the rt emergency department Medications were administered in the Emergency Department. See APR. 03/04 12:19 Order name: I\T\D Setup; Complete Time: 12:23 rt 03/04 13:01 Order name: Dressing - Wound; Complete Time: 13:37 rt Administered Medications: 12:23 Drug: [place] PO 10 mg-325 mg 1 tabs PO once Route: PO; ap3 13:37 Drug: Lidocaine Infiltration (1 %) 5 ml 5 ml Infiltration once; to bedside Volume: 5 mb9 ml; Route: Infiltration; Disposition Summary: 03/04/23 13:03 Discharge Ordered Notes: Location: Home rt Problem: new rt Symptoms: have improved rt Condition: Stable rt Diagnosis - Cutaneous abscess to left axilla rt Followup: rt - With: Private Physician - When: 5 - 6 days - Reason: Discharge Instructions: - Discharge Summary Sheet rt - Skin Abscess rt Forms: - Medication Reconciliation Form rt - Thank You Letter rt - Antibiotic Education rt - Prescription Opioid Use rt - Patient Portal Instructions rt - Leadership Thank You Letter rt Prescriptions: - acetaminophen-codeine 300-30 mg Oral tablet - take 1 tablet ORAL route every 6 hours as needed for pain; 15 tablet; Refills: rt 0, Product Selection Permitted - Doxycycline Monohydrate 100 mg Oral Tablet - take 1 tablet ORAL route every 12 hours for 10 days; 20 tablet; Refills: 0, rt Product Selection Permitted Signatures: Lisa Keita RN RN aa5 Serenity Forrest RN RN ap3 Duyen Cody RN RN mb9 Nirmal Jacobs MD MD rt
[2023-03-04 14:44] VITALS: BP 132/89; TEMP 97.5; O2SAT 99
== END ==
LOC: ER 11:48
PROC: 0H9CXZZ Drainage of Left Upper Arm Skin, External Approach (ICD-10-PCS; principal; 2023-03-04)
DX: L02.412 Cutaneous abscess of left axilla (principal); Z88.0 Allergy status to penicillin
CPT/HCPCS: 99283; 10060; J2001